=== PATIENT | male | born 1980 | race Caucasian/White ===

== ENCOUNTER 2021-07-23 13:36 | Outpatient (CLI) | payer BC, SELFPAY ==
--- NOTE | 2021-07-23 13:47 | US_ITS ---
WS: [id number] ULTRASOUND SOFT TISSUES RIGHT forearm. HISTORY: MASS/CYST ON RIGHT FOREARM COMPARISON: None available. TECHNIQUE: 2-D and color Doppler imaging is submitted. Well-circumscribed predominantly hypoechoic mass in the RIGHT forearm. This mass measures 1.0 x 0.5 c m. There is increased vascularity throughout. There is a very closely associated pain which may conne ct or be closely associated with the mass. No of surrounding edema. US/US soft tissue/extremity [id number] IMPRESSION: Soft tissue mass RIGHT forearm with increased vascularity. Favor this is probab ly hemangioma or vascular malformation. If this mass continues to increase in s ize surgical removal should be considered to exclude malignancy.
== END 2021-07-23 13:37 | disposition home or self-care (01) ==
LOC: RAD 13:39
PROVIDERS: PCP Family Medicine; Visit Provider Family Medicine
DX: M99.87 Other biomechanical lesions of upper extremity (principal)
CPT/HCPCS: 76882